=== PATIENT | male | born 1940 | race Caucasian/White ===

== ENCOUNTER 2019-11-22 13:33 | Inpatient (IN) | payer MEDICARE, SELFPAY ==
--- NOTE | ~2019-11-22 | XR_ITS ---
EXAMINATION: XR hip LT 2V w AP pelvis INDICATION: Left hip pain after fall, initial encounter TECHNIQUE: AP view the pelvis and two views of the left hip are obtained. COMPARISON: None available FINDINGS: There is an acute, traumatic, oblique, comminuted, intertrochanteric fracture of the left f emur. The femoral head is well-seated in the acetabulum. There is mild hip osteoarthritis. No additio nal fracture is identified. There is calcified atherosclerosis. IMPRESSION: 1. Acute, comminuted intertrochanteric fracture of the left femur. Reviewed, dictated and finalized at location A.
--- NOTE | ~2019-11-22 | XR_ITS ---
EXAMINATION: XR chest 1V portable INDICATION: Coronary artery disease, history of hypertension TECHNIQUE: Portable AP chest at 1519 hours COMPARISON: None available FINDINGS: The lungs are free of acute opacities. There is no pleural effusion or pneumothorax. Cardio megaly is noted. A dual-lead cardiac pacemaker of the left chest wall ends with leads in expected loc ations. Median sternotomy wires and mediastinal surgical clips are seen, likely from prior coronary a rtery bypass grafting. IMPRESSION: 1. No acute cardiopulmonary abnormality. Reviewed, dictated and finalized at location A.
[2019-11-22 13:36] VITALS: BP 132/63; PULSE 73; RESP 18; TEMP 36.8; O2SAT 100
--- NOTE | 2019-11-22 13:41 | ED.FALL ---
HPI - Fall General Chief Complaint: Fall Stated Complaint: fall Time Seen by Provider: 11/22/19 13:37 Source: patient Mode of arrival: EMS Limitations: no limitations History of Present Illness HPI Narrative: An 78 y/o male pt presents to the ED, via EMS, with c/o a fall on his lt hip that occurred prior to EMS arrival. Pt states he tripped over a bike and fell onto his lt hip. Pt denies dizziness or lightheadedness prior to tripping and falling and states that he is unable to get up or walk since falling. He reports lt hip pain, but denies hitting his head, LOC, CP, back pain, new onset of SOB (chronic), or any other injuries from fall. Pt states his pain is excruciating and notes that his pain is exacerbated with movement. He denies having anything for pain prior to arrival. Pt states he has a pacemaker and has NKA. complaint: fall Onset (ago): hour(s) Fall from: standing Place fall occurred: home Loss of consciousness: none Symptoms prior to fall: none Context: tripped/slipped (tripped over bike) Location of injury: other (lt hip) Severity: severe ( excruciating ) Associated symptoms (after fall): other (pain to lt hip) Related Data Home Medications Medication Instructions Recorded Confirmed aspirin 81 mg PO DAILY 11/22/19 11/22/19 atorvastatin 40 mg PO DAILY 11/22/19 11/22/19 clopidogrel 75 mg PO DAILY 11/22/19 11/22/19 folic acid 1 mg PO DAILY 11/22/19 11/22/19 furosemide 20 mg PO DAILY 11/22/19 11/22/19 levothyroxine [Levoxyl] 125 mcg PO DAILY 11/22/19 11/22/19 metoprolol tartrate 100 mg PO BID 11/22/19 11/22/19 sacubitril-valsartan [Entresto] 1 tablet PO DAILY 11/22/19 11/22/19 spironolactone 25 mg PO DAILY 11/22/19 11/22/19 Allergies Allergy/AdvReac Type Severity Reaction Status Date / Time No Known Allergies Allergy Verified 11/22/19 14:15 Review of Systems Review of Systems: All systems reviewed & are unremarkable except as noted in HPI and below Cardiovascular: Cardiovascular: Denies chest pain Respiratory: Respiratory: Denies dyspnea (no new onset, chronic) Musculoskeletal: Musculoskeletal: Denies back pain, Reports arthralgias (lt hip) and Reports other (unable to walk, get up since fall) Neurologic: Denies dizziness and Denies other (LOC, lightheadedness) [facility] Past Medical History Medical History (Updated 11/22/19 @ 18:30 by Cayden Marsh MD) Medical history unknown Pacemaker Surgical History Surgical History (Updated 11/22/19 @ 16:55 by Agnieszka [facility] [employer]) Surgical history unknown Family History Family History (Updated 11/22/19 @ 18:03 by Brandt Smith RN) Mother Ovarian cancer Social History Social History (Updated 11/22/19 @ 16:55 by YASSSUdeepak [facility] [employer]) Smoking packs per day: 1 Smoking cigarettes per day: 20.0 Smoking status: Former smoker Tobacco type: cigarettes Smoking end date: 09/17/66 Alcohol intake: never Substance use: never Gender identity (if verbalized by the patient): Male Spiritual care concerns: No Agree to blood products: Yes Exam Const: General: healthy appearing, no acute distress and other (elderly) Nutritional Appearance: well nourished HENMT: Mouth: Yes lip normal and Yes moist mucous membranes Eyes: Conjunctivae: conjunctivae normal Pupils: Equal, round and reactive pupils present Resp: Effort & Inspection: normal respiratory effort Auscultation: clear to auscultation bilaterally Cardio: Rate: regular rate Rhythm: regular rhythm Heart sounds: no murmurs Peripheral pulses: Peripheral pulses 2+ throughout and other (pulses 2+ on LLE) GI: GI Palp: Yes Soft to palpation and No Tenderness to palpation present (GI) Auscultation: normal bowel sounds Skin: General skin exam: normal color, dry skin and other (warm) Neuro: General: patient oriented x3 (alert) Speech: normal speech Extrem: Right upper extremity: full ROM Left upper extremity: full ROM Right lower extremity: full ROM Left lower extremi
[2019-11-22] MEDS: MORPHINE SULFATE 4 MG/ML INJ IV PUSH ×3 (14:15→21:00)
--- NOTE | 2019-11-22 15:01 | ECG_ITS ---
Measurements Intervals [place] Rate: 53 P: 56 ND: 262 QRS: -48 QRSD: 129 T: -3 QT: 448 QTc: 424 Interpretive Statements SINUS BRADYCARDIA WITH FIRST DEGREE AV BLOCK LEFT AXIS DEVIATION LEFT BUNDLE BRANCH BLOCK ANTEROSEPTAL INFARCT, AGE INDETERMINATE INFERIOR INFARCT OR DUE TO LBBB BASELINE ARTIFACT- I, II, III, AVR ABNORMAL ECG Electronically Signed On 11-22-2019 15:28:57 CDT by Neftaly Sykes D.O.
--- NOTE | 2019-11-22 15:40 | PC.NURSE ---
Pt and family member at bedside refusing for us to draw labs at this time
[2019-11-22 15:50] VITALS: BP 116/59; PULSE 56; RESP 16; O2SAT 97
[2019-11-22 16:31] LABS: Basophils Percent Auto 0.1 % (0.2-1.2); Eosinophils Percent Auto 0.1 % (0-4.4); Hematocrit 34.9 % (42.0-52.0); Hemoglobin 10.8 g/dL (14.0-18.0); Immature Granulocyte Absolute 0.05 K/mm3 (0.00-0.031); Immature Granulocyte Percent A 0.3 % (0-0.5); Immature Platelet Fraction Pct 6.9 % (0.9-11.2); Lymphocytes Absolute Auto 2.16 K/mm3 (0.9-3.2); Lymphocytes Percent Auto 14.3 % (18.3-44.2); Mean Corpuscular HGB Conc 30.9 g/dl (32-36); Mean Corpuscular Hemoglobin 30.4 pg (26-34); Mean Corpuscular Volume 98.3 fl (80-100); Mean Platelet Volume 11.5 fl (7.4-10.4); Monocytes Absolute Auto 0.9 K/mm3 (0.1-0.6); Monocytes Percent Auto 6.1 % (2.6-8.5); Neutrophils Absolute Auto 11.9 K/mm3 (1.3-6.7); Neutrophils Percent Auto 79.1 % (45.5-73.1); Platelet Count Result 108 k/mm3 (150-375); Red Blood Count 3.55 M/mm3 (4.6-6.20); Red Cell Distribution Width 15.2 % (11.5-14.5); White Blood Count 15.1 K/mm3 (4.5-10.0)
[2019-11-22 16:39] LABS: INR 1.1; Partial Thromboplastin Time 25.3 SECONDS (22.3-36.8); Prothrombin Time 13.5 Seconds (11.1-14.7)
[2019-11-22 16:41] LABS: Blood Urea Nitrogen 33 mg/dL (9-20); Calcium 8.6 mg/dL (8.4-10.2); Carbon Dioxide 23 mmol/L (22-30); Chloride 105 mmol/L (98-107); Estimated CRCL calculation 25 ml/min; Estimated Glomerular Filt Rate 36; Glucose 120 mg/dL (75-110); Potassium 4.5 mmol/L (3.4-5.0); Sodium 137 mmol/L (137-145)
[2019-11-22 16:59] VITALS: BP 107/51; PULSE 58; RESP 16; O2SAT 100
[2019-11-22 17:09] VITALS: BP 110/62; PULSE 60; RESP 18; TEMP 36.6; O2SAT 95
--- NOTE | 2019-11-22 17:49 | PC.NURSE ---
Patient arrived on 3med/surg @1709, patient oriented to unit, assessed the patient and made sure pain level was tolerable, call light set beside patient and bed alarm was placed on. Patient A&OX3 and is able to answer admission questions.
[2019-11-22 22:00] VITALS: BP 92/55; PULSE 70; RESP 16; TEMP 36.7; O2SAT 98
--- NOTE | 2019-11-22 22:35 | PM.IMHP ---
H&P: HPI History of Present Illness Chief complaint: HIP FRACTURE Narrative: Date and time of patient contact: 11/22/2019 at 11:00 p.m. Hong Becerra Sr. is a 78 year old male with a past medical history of ischemic cardiomyopathy with pacemaker and defibrillator, chronic kidney disease stage 3 and hypertension who presented to the ER after a fall resulting in a intertrochanteric left hip fracture. The patient states that he and his family are moving and he was trying to grab something in the garage when he tripped on a bicycle. He stumbled to try to catch himself but failed to do so in landed on his left side. He did not hit his head or lose consciousness. He had immediate pain in his hip that became excruciating when he tried to get up on his knees to sit down in a chair. He was unable to bear weight on his left leg. His family helped him up to a chair. Pain is severe with any movement of the left lower extremity. Currently about 2 hours after receiving morphine is pain in his back up to a 6 but had gotten down as low as the 3 after morphine administration. However after 4 mg of morphine the patient did become borderline hypotensive with blood pressure of 92/55. The patient reports that he is able to move around the house and help with simple activities without shortness of breath. However he does become short of breath if he climbs a flight of stairs or his walking with a box in his arms. He reports that he sees his religious leader on a yearly basis. He denies orthopnea, paroxysmal nocturnal dyspnea, lower extremity swelling, or chest pain. He states that his religious leader needs to be notified before he has a surgery. The patient had wanted to go to [facility]. The ER physician had arranged transfer to [facility] ER and then the patient changed his mind did decide is is stay [facility]. The ER physician spoke to Dr. Walt Lewis from Orthopedic surgery. Prior to his fall the patient had not been having any ill symptoms. He does have a history of chronic kidney disease but it appears that his kidney function is stable. He did have a gouty flare, in his great toe, a couple of weeks ago but this has since resolved. He denies any dysuria or changes in urinary frequency. He denies any visual changes or headache. He does have some macular degeneration in his left eye. He reports that he has independent activities of daily living and still drives. Review of Systems Review of Systems: Narrative: Except as documented in the HPI, all other systems were reviewed and are negative. [facility] Past Medical History Medical History (Updated 11/23/19 @ 00:37 by Jamaica Zuleta DO) Chronic kidney disease, stage 3 The patient reports that creatinine is around 1.7-1.8 baseline Gout Hemorrhoids Hypothyroidism Ischemic cardiomyopathy with implantable cardioverter-defibrillator (ICD) Kidney stones TIA (transient ischemic attack) 2015 Surgical History Surgical History (Updated 11/23/19 @ 00:40 by Jamaica Zuleta DO) AICD (automatic cardioverter/defibrillator) present Placed November 1999, battery was exchanged 2015. Patient's religious leader is Dr. Jett Meza at [facility] History of bilateral cataract extraction 2016 History of colonoscopy with polypectomy History of umbilical hernia repair Hx of CABG 1988 Pacemaker Placed November 1999. Per the patient's report sounds as if the patient had a third-degree heart block Family History Family History (Updated 11/23/19 @ 00:55 by Jamaica Zuleta DO) Mother Ovarian cancer Son , Patient's son in his 50s. Renal failure Patient's noncompliance with other medical treatment and regimen Social History Social History (Updated 11/23/19 @ 00:44 by Jamaica Zuleta DO) Social History: Primary care physician: Dr. Sameer Martinez Code status: DNR; the patient would be willing to suspend is DNR to have a surgical procedure. Smoking packs per day:
[2019-11-23] MEDS: MORPHINE SULFATE 4 MG/ML INJ 2 MG IV PUSH ×2 (00:50→04:56)
[2019-11-23 05:22] VITALS: BP 89/50; PULSE 76; RESP 16; TEMP 36.7; O2SAT 94
--- NOTE | 2019-11-23 10:52 | PM.IMPN ---
Progress Note: A&P Assessment and Plan (1) Closed intertrochanteric fracture of femur: Qualifiers: Encounter type: initial encounter Fracture alignment: displaced Laterality: left Qualified Code(s): S72.142A - Displaced intertrochanteric fracture of left femur, initial encounter for closed fracture Code(s): S72.143A - Displaced intertrochanteric fracture of unspecified femur, initial encounter for closed fracture Status: Acute Assessment and Plan: -----Acute comminuted intratrochanteric fracture. The patient's home aspirin and Plavix has been held. Dr. Lewis was consulted and I spoke with him about the plan and he may do surgery tomorrow. I have ordered a diet but the patient for the time being and called his and let her know. He is a higher risk patient due to his cardiomyopathy. Will place NPO at midnight (2) Ischemic cardiomyopathy: Code(s): I25.5 - Ischemic cardiomyopathy Status: Acute Assessment and Plan: ----The patient's cardiomyopathy is well compensated at this time. However his cardiac medications have been on hold due to his hypotension. Will monitor for reflex tachycardia due to holding the beta-marisela. Resume aspirin as soon as surgery is okay with this. (3) Leukocytosis: Code(s): D72.829 - Elevated white blood cell count, unspecified Status: Acute Assessment and Plan: -----no infection suspected and likely reactionary to acute fracture. Will monitor (4) Thrombocytopenia: Code(s): D69.6 - Thrombocytopenia, unspecified Status: Acute Assessment and Plan: -----mild and noted on labs. No previous labs for comparison. Monitor (5) Hypotension: Code(s): I95.9 - Hypotension, unspecified Status: Acute Assessment and Plan: -----blood pressures have been low likely due to narcotic medications. Perimeters have been set for the pain medication. Will hold hypertensive medications at this time. Restart as soon as his blood pressure allows. (6) Chronic kidney disease, stage 3: Code(s): N18.3 - Chronic kidney disease, stage 3 (moderate) Status: Acute Assessment and Plan: -----the patient reports that his creatinine is around 1.7-to 1.8 at baseline. Will monitor Time Spent With Patient Time with patient: 25 - 35 minutes Subjective Date/time seen: 11/23/19 10:52 Interval history: Pt is a 78-year-old man here for hip fracture. Patient states that his pain comes and goes and is located in his left hip. His pain is currently a 5/10 and had received morphine about an hour before and is feeling a little better. He denies chest pain, shortness of breath, fevers, chills, lightheadedness, dizziness, nausea, vomiting, diarrhea or constipation. He is hungry. Review of Systems Review of Systems: All systems reviewed & are unremarkable except as noted in HPI and below Exam Narrative: Exam Narrative: General: Well developed well nourished patient resting in bed in no acute distress HEENT: normocephalic Neck: supple Neuro: Alert and oriented to himself, situation, president, and place but thought it was 2001. Sensory intact in the left leg CV:RRR Resp:CTA from anterior chest and flanks Abd: Soft, non distended. No pain to palpation. Positive bowel sounds Extremities: Left leg externally rotated. Pulses and sensitivity intact. No swelling. Pain to palpation to the left hip Objective Data Vital Signs Vital Signs: Vital Signs - 24 hr 11/22/19 13:36 11/22/19 15:50 11/22/19 16:59 Temperature 98.2 F Pulse Rate 73 56 L 58 L Respiratory Rate 18 16 16 Blood Pressure 132/63 116/59 L 107/51 L Pulse Oximetry 100 97 100 11/22/19 17:09 11/22/19 22:00 11/23/19 05:22 Temperature 97.9 F 98.0 F 98.0 F Pulse Rate 60 70 76 Respiratory Rate 18 16 16 Blood Pressure 110/62 92/55 L 89/50 L Pulse Oximetry 95 98 94 Intake/Output Intake/Output: Intake & Out
[2019-11-23] MEDS: ATORVASTATIN 40 MG TABLET PO (11:09)
[2019-11-23] MEDS: MORPHINE SULFATE 2 MG/ML INJ IV PUSH (13:48)
[2019-11-23 14:00] VITALS: BP 107/61; PULSE 101; RESP 16; TEMP 36.9; O2SAT 90
--- NOTE | 2019-11-23 14:06 | PM.CNOR ---
Assessment and Plan Assessment and plan (1) Closed intertrochanteric fracture of femur: Qualifiers: Encounter type: initial encounter Fracture alignment: displaced Laterality: left Qualified Code(s): S72.142A - Displaced intertrochanteric fracture of left femur, initial encounter for closed fracture Code(s): S72.143A - Displaced intertrochanteric fracture of unspecified femur, initial encounter for closed fracture Status: Acute Assessment and Plan: Intertrochanteric fracture with subtrochanteric extension. Significant comminution of the medial calcar area. Highly unstable fracture may require open reduction and internal fixation in addition to intramedullary nailing. High risk injury with increased expected blood loss. Takes Plavix and Aspirin. Given the complexity of the fracture and the high risk secondary to his ischemic cardiomyopathy and implanted pacemaker/defibrillator, I recommend transfer to [facility] tertiary care center. (2) Ischemic cardiomyopathy: Code(s): I25.5 - Ischemic cardiomyopathy Status: Acute (3) Chronic kidney disease, stage 3: Code(s): N18.3 - Chronic kidney disease, stage 3 (moderate) Status: Acute History of Present Illness HPI Consult date: 11/23/19 Chief complaint: HIP FRACTURE Narrative: Patient complains of acute hip pain. Fell from standing height. Admitted through the emergency room for definitive managmenet. No previous hip pain. Uncomfortable at rest. No numbness, tingling, or other associated symptoms. Review of Systems Review of Systems: Narrative: Denies loss of consciousness. All systems reviewed & are unremarkable except as noted in HPI and below PMFSH Past Medical History Medical History Chronic kidney disease, stage 3 The patient reports that creatinine is around 1.7-1.8 baseline Gout Hemorrhoids Hypothyroidism Ischemic cardiomyopathy with implantable cardioverter-defibrillator (ICD) Kidney stones TIA (transient ischemic attack) 2015 Surgical History Surgical History AICD (automatic cardioverter/defibrillator) present Placed November 1999, battery was exchanged 2015. 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 Jett Meza at [place] History of bilateral cataract extraction 2016 History of colonoscopy with polypectomy History of umbilical hernia repair Hx of CABG 1987 Pacemaker Placed November 1999. Per the patient's report sounds as if the patient had a third-degree heart block Family History Family History Mother Ovarian cancer Son , Patient's son in his 50s. Renal failure Patient's noncompliance with other medical treatment and regimen Social History Social History Social History: Primary care physician: Dr. Sameer Martinez Code status: DNR; the patient would be willing to suspend is DNR to have a surgical procedure. Smoking packs per day: 1 Smoking cigarettes per day: 20.0 Smoking status: Former smoker Tobacco type: cigarettes Smoking end date: 09/17/66 Alcohol intake: former Alcohol use details: The patient used to drink alcohol in moderation but quit drinking in the 1960s Substance use: never Living arrangements: with family Additional living arrangements comments: He lives with his of 62 years and his daughter and son-in-law. He has a total of 4 children. One son and 3 daughters. His son is from renal failure and not adherence to medical therapy. 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 Gender identity (if verbalized by the patient): Male Spiritual care concerns: No Agree to blood products: Yes Meds Home Medications and Allergies
--- NOTE | 2019-11-23 15:16 | PM.TDS ---
Transfer Discharge Sum: Prov Provider Date of admission: 11/22/19 16:09 Primary care physician: UNKNOWN,DOCTOR Admitting clinician: Kaden Mccauley MD Consults: 11/22/19 16:10 Consult to Physician Routine Comment: Consulting Provider: Walt Lewis Reason for consultation: Hip fracture Has provider been notified: Yes Receiving physician/facility: Yris Reich DS: Diagnosis Admitting Diagnosis Admitting Diagnosis: Displaced intertrochanteric fracture of left femur, initial encounter for closed fracture Discharge Diagnosis (1) Closed intertrochanteric fracture of femur: Qualifiers: Encounter type: initial encounter Fracture alignment: displaced Laterality: left Qualified Code(s): S72.142A - Displaced intertrochanteric fracture of left femur, initial encounter for closed fracture Code(s): S72.143A - Displaced intertrochanteric fracture of unspecified femur, initial encounter for closed fracture Status: Acute (2) Ischemic cardiomyopathy: Code(s): I25.5 - Ischemic cardiomyopathy Status: Acute (3) Leukocytosis: Code(s): D72.829 - Elevated white blood cell count, unspecified Status: Acute (4) Thrombocytopenia: Code(s): D69.6 - Thrombocytopenia, unspecified Status: Acute (5) Hypotension: Code(s): I95.9 - Hypotension, unspecified Status: Acute (6) Chronic kidney disease, stage 3: Code(s): N18.3 - Chronic kidney disease, stage 3 (moderate) Status: Acute Transfer Discharge Sum: Med Medications Active and Home Medications: Home Medications aspirin 81 mg PO DAILY 11/22/19 [History Confirmed 11/22/19] atorvastatin 40 mg PO DAILY 11/22/19 [History Confirmed 11/22/19] clopidogrel 75 mg PO DAILY 11/22/19 [History Confirmed 11/22/19] folic acid 1 mg PO DAILY 11/22/19 [History Confirmed 11/22/19] furosemide 20 mg PO DAILY 11/22/19 [History Confirmed 11/22/19] levothyroxine [Levoxyl] 125 mcg PO DAILY 11/22/19 [History Confirmed 11/22/19] metoprolol tartrate 100 mg PO BID 11/22/19 [History Confirmed 11/22/19] sacubitril-valsartan [Entresto] 1 tablet PO DAILY 11/22/19 [History Confirmed 11/22/19] spironolactone 25 mg PO DAILY 11/22/19 [History Confirmed 11/22/19] Active Medications Aspirin (Aspirin Chewable) 81 mg PO DAILY@0800 [facility] Last Admin: 11/23/19 11:10 Dose: Not Given Documented by: Atorvastatin Calcium (Lipitor) 40 mg PO DAILY [facility] Last Admin: 11/23/19 11:09 Dose: 40 mg Documented by: Furosemide (Lasix Tablet) 20 mg PO DAILY [facility] Last Admin: 11/23/19 11:12 Dose: Not Given Documented by: Acetaminophen (Ofirmev 1,000 Mg Ivpb) 1,000 mg in 100 mls @ 400 mls/hr IVPB Q6H PRN PRN Reason: PAIN RATED 1-6 Stop: 11/24/19 09:13 Levothyroxine Sodium (Synthroid) 125 mcg PO DAILY@0630 [facility] Last Admin: 11/23/19 06:17 Dose: Not Given Documented by: Morphine Sulfate (Morphine Sulfate Inj) 2 mg IV PUSH Q2H PRN PRN Reason: Pain Rated 7-10 Last Admin: 11/23/19 13:48 Dose: 2 mg Documented by: Sacubitril/Valsartan (Entresto 97 Mg-103 Mg Tablet) 1 tab PO DAILY [facility] Last Admin: 11/23/19 11:49 Dose: Not Given Documented by: Spironolactone (Aldactone) 25 mg PO DAILY [facility] Last Admin: 11/23/19 11:49 Dose: Not Given Documented by: Transfer Discharge Sum: Hosp Hospital Course Hospital course: Hong Becerra is a 78 year old male who presented emergency room after a fall in his garage and was diagnosed with an intratrochanteric fracture of the left femur. Chest x-ray was negative. White blood cell count 15.1, hemoglobin 10.8, platelets 108. BMP showed his chronic kidney disease with a creatinine 1.8 that he says is at his baseline. He was admitted to the hospitalist service and saw Orthopedic surgery who deemed the fracture too significant for this [facility] especially since the patient has a cardiomyopathy and his drama therapist is at [place]. Dr. Lewis called [place] and explained the
--- NOTE | 2019-11-23 17:11 | PC.NURSE ---
@1630 patient was transported by EMS to [facility]. Before discharge the daughter of this patient was called and informed of the patients transfer to [place] and also the room number this patient was assigned. IV line kept in for [facility]. Belongings list verified. Patient informed as well of transfer and any questions the patient had were answered.
== END 2019-11-23 16:30 | disposition short-term general hospital (02) | DRG 536 ==
LOC: ANHED 14:12 → ANH3MEDSUR 16:40
PROVIDERS: Admitting Provider Internal Medicine; Emergency Provider Emergency Medicine; Visit Provider Internal Medicine
DX: S72.142A Displaced intertrochanteric fracture of left femur, initial encounter for closed fracture (principal); S72.25XA Nondisplaced subtrochanteric fracture of left femur, initial encounter for closed fracture; I25.5 Ischemic cardiomyopathy; Z95.810 Presence of automatic (implantable) cardiac defibrillator; N18.3 Chronic kidney disease, stage 3 (moderate); I12.9 Hypertensive chronic kidney disease with stage 1 through stage 4 chronic kidney disease, or unspecified chronic kidney disease; W18.09XA Striking against other object with subsequent fall, initial encounter; M10.9 Gout, unspecified; K64.9 Unspecified hemorrhoids; E03.9 Hypothyroidism, unspecified; Z87.442 Personal history of urinary calculi; Z95.1 Presence of aortocoronary bypass graft; Z87.891 Personal history of nicotine dependence; D69.6 Thrombocytopenia, unspecified; I95.2 Hypotension due to drugs; T40.605A Adverse effect of unspecified narcotics, initial encounter
CPT/HCPCS: 36415; 71045; 73502; 73521; 80048; 85025; 85055; 85610; 85730; 93005; 96374; 96376; 99285; A9270; J2270

== ENCOUNTER → 2020-05-12 10:47 | Outpatient (CLI) | payer MEDICARE, SELFPAY ==
--- NOTE | ~2020-05-12 | CT_ITS ---
EXAMINATION: CT abdomen pelvis w con EXAM DATE: 05/12/2020 11:40 INDICATION: Mesenteric mass on CT scan from outside institution reportedly measured 26 mm on scan neel e 06/05/2019 based on report provided. TECHNIQUE: Spiral CT of the abdomen and pelvis was performed following intravenous injection of 100 m L Omnipaque 350. Axial, coronal and sagittal images were reviewed. The dose-length product (DLP) fo r this examination was 487.48 mGy-cm. The exposure was tailored according to patient size (auto mA e xposure control), and iterative reconstruction (ASIR) was used as additional dose reduction technique . There is no prior study for comparison. 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 This is contiguous to cecal base and terminal ileum, could be an exophytic colonic ma ss, atrophy, appendical mass, or mesenteric lymph node. No retroperitoneal or pelvic lymphadenopathy. There is moderate sigmoid colonic diverticulosis. There is no adjacent inflammatory change to sugges t diverticulitis. There are several liver hypodensities measuring up to 1 cm, fluid density consisten t with cysts. The pancreas, spleen, adrenal glands are unremarkable. Gallbladder is unremarkable. N o biliary obstruction. Portal and splenic veins are patent. Kidneys enhance symmetrically. There i s no hydronephrosis. There is mild prostatomegaly. Small bilateral inguinal fat-containing hernias. The bladder is unremarkable. There is moderate scattered arteriosclerotic disease. The appendix is normal. The stomach and small bowel are unremarkable. There is expected amount of c olonic stool. No free intraperitoneal gas. There is cardiomegaly. Sternotomy wires. Left hip gamm a nail. The lung bases are unremarkable. There are no osteoblastic or osteolytic lesions identified . IMPRESSION: 1. 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 Consider colonic cancer, appendical carcinoi d, necrotic mesenteric lymph node as possibilities. Surgical consult for excision recommended. 2. Colonic diverticulosis. 3. Small inguinal hernias. 4. Mild prostatomegaly. 5. Cardiomegaly. Reviewed, dictated and finalized at [facility]. IMPRESSION: 1. 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 Consider colonic cance r, appendical carcinoid, necrotic mesenteric lymph node as possibilities. Surgi alicia consult for excision recommended. 2. Colonic diverticulosis. 3. Small inguinal hernias. 4. Mild prostatomegaly. 5. Cardiomegaly.
[2020-05-12 11:15] LABS: Estimated Glomerular Filt Rate 42
== END ==
DX: I51.7 Cardiomegaly (principal); N40.0 Benign prostatic hyperplasia without lower urinary tract symptoms; K57.30 Diverticulosis of large intestine without perforation or abscess without bleeding; K40.90 Unilateral inguinal hernia, without obstruction or gangrene, not specified as recurrent
CPT/HCPCS: 74177; Q9967

== ENCOUNTER 2022-01-29 12:43 | Emergency (ER) | payer MEDICARE, SELFPAY ==
--- NOTE | ~2022-01-29 | XR_ITS ---
XR femur LT min 2V DATE: 01/29/2022 13:15 INDICATION: Fall. Left leg pain. TECHNIQUE: AP and lateral views of left femur COMPARISON: None FINDINGS: There are 2 compression screws proximally and 2 compression screws distally through an intr amedullary vaishnavi extending nearly the length of the left femur bone. There is old healed left intertrochanteric hip fracture. There is a recent linear oblique completely nondisplaced fracture of the distal femoral shaft, which is bridged by the intramedullary vaishnavi. Mild suprapatellar knee joint effusion is suggested. There is extensive calcification of the left femoral and deep femoral and popliteal and trifurcation arteries. There are surgical clips along the medial aspect of the distal thigh and knee IMPRESSION: Recent linear oblique nondisplaced distal ulnar shaft fracture, bridged by the pre-existi ng intramedullary vaishnavi Mild knee joint effusion Status post ORIF left intertrochanteric hip fracture Reviewed, dictated and finalized at location [facility]. IMPRESSION: Recent linear oblique nondisplaced distal ulnar shaft fracture, [place] dged by the pre-existing intramedullary vaishnavi Mild knee joint effusion Status post ORIF left intertrochanteric hip fracture
--- NOTE | ~2022-01-29 | CT_ITS ---
EXAMINATION: CT cervical spine wo con DATE: 01/29/2022 13:23 INDICATION: Patient fell and struck back of head. Head and neck injury. TECHNIQUE: Computed tomography (CT) of the cervical spine was performed without intravenous contrast. Automated exposure control and iterative reconstruction technique were employed. Exam dose: 365.29 mGy-cm total exam DLP. COMPARISON: None FINDINGS: There is straightening of the cervical spinal which may be due to muscle spasm and/or posit ioning. There is mild degenerative disc disease at C2-3 and moderately severe degenerative disc disease throu ghout the remainder of the cervical spine. There is degenerative change at the apophyseal joints throughout the cervical spine and uncovertebral joint spurring from C3-4 through the lower cervical spine. C1 and C2 are normally aligned and the odontoid process is intact. No fracture or dislocation or lock ed facet or prevertebral soft tissue swelling is detected.. IMPRESSION: Cervical spondylosis Straightening of the cervical spine which may be due to muscle spasm No fracture or dislocation or locked facet Reviewed, dictated and finalized at [facility]. Reviewed, dictated and finalized at [facility].
--- NOTE | ~2022-01-29 | XR_ITS ---
XR hip LT min 2V DATE: 01/29/2022 13:15 INDICATION: Fall. Left hip and leg pain TECHNIQUE: AP and lateral views COMPARISON: 11/22/2019 left hip FINDINGS: There are 2 compression screws and IM nail in the proximal left femur, providing internal f ixation for an old intertrochanteric left hip fracture. No recent fracture or dislocation is detected. Multilevel degenerative disc disease of the lumbar spine. Osteopenia. Iliac and femoral artery calcifications. IMPRESSION: Status post ORIF old left intertrochanteric hip fracture No recent fracture or dislocation is detected Reviewed, dictated and finalized at [facility].
--- NOTE | ~2022-01-29 | CT_ITS ---
EXAMINATION: CT brain wo con DATE: 01/29/2022 13:23 INDICATION: Patient fell and struck posterior aspect of head TECHNIQUE: Computed tomography (CT) of the head was performed without intravenous contrast. The mA wa s adjusted according to patient size. Iterative reconstruction technique was employed. Exam dose: 60 5.33 mGy-cm total exam DLP. COMPARISON: None FINDINGS: Bilateral vertebral artery, basilar artery and bilateral carotid siphon and supraclinoid in ternal carotid artery calcifications. There is nonspecific diminished attenuation of the cerebral whi te matter, likely due to chronic small vessel ischemic changes. There is central and cortical cerebral and cerebellar atrophy. No intracranial mass lesion or hemorrhage or cerebrovascular accident or midline shift or mass effect is noted. No evidence of subdural or epidural hematoma. No fracture or bone destruction of the cranial vault. Approximately 11 mm polyp or mucous retention cyst of the left sphenoid sinus. The paranasal sinuses and mastoid air cells are otherwise unremarkable. No fracture or bone destruction of the cranial vault. IMPRESSION: Cerebral atherosclerosis and chronic small vessel ischemic changes of the cerebral white matter Cerebral and cerebellar atrophy No skull fracture or acute intracranial abnormality Reviewed, dictated and finalized at [facility]. Reviewed, dictated and finalized at [facility].
[2022-01-29 12:40] VITALS: BP 136/72; PULSE 80; RESP 18; TEMP 36.7; O2SAT 98
--- NOTE | 2022-01-29 12:53 | ED.GENADULT ---
HPI - General Adult General Chief complaint: Fall Stated complaint: fall Time Seen by Provider: 01/29/22 12:44 History of Present Illness HPI narrative: Patient is an 81-year-old female with a history of displaced intertrochanteric fracture of left femur status post repair at [place] (2019), ischemic cardiomyopathy with pacemaker and defibrillator, chronic kidney disease stage 3 and hypertension here for evaluation of a head injury status post a fall while at [employer] today. Patient states that he has chronic issues with his left leg giving out on him since the repair, and this happened to him while he was ambulating at [employer]. This resulted in a fall, and he struck his head against a brick wall. He denies any loss of consciousness. Takes aspirin and Plavix. Denies any headache currently, but does note that his left hip is aching and does report some pain to his distal femur, worse with knee movement. Has been walking since the fall. He states that he was in his usual state of health this morning, denies any chest pain, shortness of breath, weakness, visual changes prior to fall or currently. Related Data Home Medications Medication Instructions Recorded Confirmed aspirin 81 mg chewable tablet 81 mg PO DAILY 11/22/19 11/22/19 atorvastatin 40 mg tablet 40 mg PO DAILY 11/22/19 11/22/19 clopidogrel 75 mg tablet 75 mg PO DAILY 11/22/19 11/22/19 folic acid 1 mg tablet 1 mg PO DAILY 11/22/19 11/22/19 furosemide 20 mg tablet 20 mg PO DAILY 11/22/19 11/22/19 levothyroxine 125 mcg tablet 125 mcg PO DAILY 11/22/19 11/22/19 (Levoxyl) metoprolol tartrate 100 mg tablet 100 mg PO BID 11/22/19 11/22/19 sacubitril 97 mg-valsartan 103 mg 1 tablet PO DAILY 11/22/19 11/22/19 tablet (Entresto) spironolactone 25 mg tablet 25 mg PO DAILY 11/22/19 11/22/19 Allergies Allergy/AdvReac Type Severity Reaction Status Date / Time No Known Allergies Allergy Verified 01/29/22 12:49 Review of Systems Review of Systems: Gen: Denies fevers or chills Eyes: Denies eye pain or visual change ENT: Denies congestion Respiratory: Denies shortness of breath or cough CV: Denies chest pain or palpitations GI: Denies abdominal pain nausea, emesis or diarrhea denies burning, urgency, frequency or hematuria Musculoskeletal: Reports left hip pain. Denies back pain or muscle pain Neuro: Reports head injury. Denies numbness, tingling, weakness or focal weakness Skin: Reports laceration to posterior head Except as documented, all other systems reviewed and negative [facility] Past Medical History Medical History (Updated 01/30/22 @ 06:54 by Nehal Loredo MD) Chronic kidney disease, stage 3 The patient reports that creatinine is around 1.7-1.8 baseline Gout Hemorrhoids Hypothyroidism Ischemic cardiomyopathy with implantable cardioverter-defibrillator (ICD) Kidney stones TIA (transient ischemic attack) 2015 Surgical History Surgical History AICD (automatic cardioverter/defibrillator) present Placed November 1999, battery was exchanged 2015. 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 Jett Meza at [place] History of bilateral cataract extraction 2016 History of colonoscopy with polypectomy History of umbilical hernia repair Hx of CABG 1988 Pacemaker Placed November 1999. Per the patient's report sounds as if the patient had a third-degree heart block Family History Family History Mother Ovarian cancer Son , Patient's son in his 50s. Renal failure Patient's noncompliance with other medical treatment and regimen Social History Social History Social History: Primary care physician: Dr. Sameer Martinez Code status: DNR; the patient would be willing to suspend is DNR to have a surgical procedure. Smoking packs per day: 1 Smoking cigarettes per day: 20.0 Smoking status:
--- NOTE | 2022-01-29 13:25 | PC.NURSE ---
Pt to CT and XRAY via stretcher at this time.
[2022-01-29 14:04] VITALS: BP 148/77; PULSE 84; RESP 17; O2SAT 96
[2022-01-29] MEDS: ACETAMINOPHEN 325 MG TABLET 650 MG PO (14:10)
[2022-01-29 16:21] VITALS: BP 122/58; PULSE 74; RESP 17; O2SAT 97
== END 2022-01-29 17:21 | disposition home or self-care (01) ==
PROVIDERS: Emergency Provider Emergency Medicine
DX: S00.01XA Abrasion of scalp, initial encounter (principal); S72.102D Unspecified trochanteric fracture of left femur, subsequent encounter for closed fracture with routine healing; I12.9 Hypertensive chronic kidney disease with stage 1 through stage 4 chronic kidney disease, or unspecified chronic kidney disease; N18.30 Chronic kidney disease, stage 3 unspecified; E03.9 Hypothyroidism, unspecified; Z86.73 Personal history of transient ischemic attack (TIA), and cerebral infarction without residual deficits; Z87.891 Personal history of nicotine dependence; W19.XXXA Unspecified fall, initial encounter; X58.XXXD Exposure to other specified factors, subsequent encounter; Y92.22 Religious institution as the place of occurrence of the external cause
CPT/HCPCS: 70450; 72125; 73502; 73552; 99284; A9270

== ENCOUNTER 2022-12-15 16:25 | Emergency (ER) | payer MEDICARE, SELFPAY ==
--- NOTE | 2022-12-15 16:29 | ED.GENADULT ---
HPI - General Adult General Chief complaint: GI Bleed Stated complaint: DARK STOOL Time Seen by Provider: 12/15/22 16:29 Source: patient, RN notes reviewed and old records reviewed Mode of arrival: ambulatory Limitations: no limitations History of Present Illness HPI narrative: 82-year-old male presents to the [facility] with dark stools. Currently on Plavix and aspirin. Has had 4 dark stools, brought 1 with him Came in wanting to do Hemoccult of the stool they brought with him. In triage heart rate noted to be 40. patient has a defibrillator pacemaker. Onset (ago): day(s) (2) Related Data Home Medications Medication Instructions Recorded Confirmed aspirin 81 mg chewable tablet 81 mg PO DAILY 11/22/19 11/22/19 atorvastatin 40 mg tablet 40 mg PO DAILY 11/22/19 11/22/19 clopidogrel 75 mg tablet 75 mg PO DAILY 11/22/19 11/22/19 folic acid 1 mg tablet 1 mg PO DAILY 11/22/19 11/22/19 furosemide 20 mg tablet 20 mg PO DAILY 11/22/19 11/22/19 levothyroxine 125 mcg tablet 125 mcg PO DAILY 11/22/19 11/22/19 (Levoxyl) metoprolol tartrate 100 mg tablet 100 mg PO BID 11/22/19 11/22/19 sacubitril 97 mg-valsartan 103 mg 1 tablet PO DAILY 11/22/19 11/22/19 tablet (Entresto) spironolactone 25 mg tablet 25 mg PO DAILY 11/22/19 11/22/19 pembrolizumab 25 mg/mL intravenous 200 mg IV 12/15/22 solution (Keytruda) Allergies Allergy/AdvReac Type Severity Reaction Status Date / Time No Known Allergies Allergy Verified 12/15/22 16:33 Review of Systems Review of Systems: All systems reviewed & are unremarkable except as noted in HPI and below Constitutional: Constitutional: Reports no additional constitutional complaints Eyes: Eyes: Reports no additional eye complaints ENT: Reports system reviewed and no additional complaints, except as documented Cardiovascular: Cardiovascular: Reports no additional cardiovascular complaints, Denies chest pain and Denies dyspnea Respiratory: Respiratory: Reports no additional respiratory complaints, Denies chest congestion, Denies cough and Denies dyspnea Gastrointestinal: Gastrointestinal: Reports as per HPI, Denies abdominal pain, Reports melena, Reports change in stool character, Denies fecal incontinence, Denies diarrhea, Denies nausea, Denies vomiting and Denies hematemesis Musculoskeletal: Musculoskeletal: Reports no additional musculoskeletal complaints Integumentary/Breasts: Skin/Breast: Reports system reviewed and no additional complaints, except as docu Neurologic: Reports system reviewed and no additional complaints, except as documented Psychiatric: Psychiatric: Reports no additional psychiatric complaints Allergic/Immunologic: Allergic/Immunologic: Reports no additional allergic/immunologic complaints [facility] Past Medical History Medical History (Updated 12/15/22 @ 17:05 by Maricruz Bojorquez APRN) Chronic kidney disease, stage 3 The patient reports that creatinine is around 1.7-1.8 baseline Gout Hemorrhoids Hypothyroidism Ischemic cardiomyopathy with implantable cardioverter-defibrillator (ICD) Kidney stones TIA (transient ischemic attack) 2015 Surgical History Surgical History AICD (automatic cardioverter/defibrillator) present Placed November 1999, battery was exchanged 2015. 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 Jett Meza at [place] History of bilateral cataract extraction 2016 History of colonoscopy with polypectomy History of umbilical hernia repair Hx of CABG 1988 Pacemaker Placed November 1999. Per the patient's report sounds as if the patient had a third-degree heart block Family History Family History Mother Ovarian cancer Son , Patient's son in his 50s. Renal failure Patient's noncompliance with other medical treatment and regimen Social History Social History Social Histo
[2022-12-15 16:36] VITALS: BP 161/56; PULSE 40; RESP 16; TEMP 36.8; O2SAT 100
[2022-12-15 16:38] VITALS: BP 161/56; PULSE 40; RESP 16; TEMP 36.8; O2SAT 100
== END 2022-12-15 16:43 | disposition left against medical advice (07) ==
PROVIDERS: Emergency Provider Nurse Practitioner
DX: R19.5 Other fecal abnormalities (principal); R00.1 Bradycardia, unspecified; Z87.891 Personal history of nicotine dependence; N18.30 Chronic kidney disease, stage 3 unspecified; M10.9 Gout, unspecified; E03.9 Hypothyroidism, unspecified; Z95.810 Presence of automatic (implantable) cardiac defibrillator; Z98.42 Cataract extraction status, left eye; Z98.41 Cataract extraction status, right eye; Z79.82 Long term (current) use of aspirin
CPT/HCPCS: 99211; G0463